=== PATIENT | male | born 1970 | race Caucasian/White ===

== ENCOUNTER 2017-03-19 10:21 | Emergency (ER) | payer BC ==
--- NOTE | 2017-03-19 10:32 | EDM.PDOC ---
ED HPI GENERAL MEDICAL PROBLEM - General Chief Complaint: Respiratory Problem Stated Complaint: COLD, COUGH,AND FEVER Time Seen by Provider: 03/19/17 10:31 Source of Information: Reports: Patient - History of Present Illness INITIAL COMMENTS - FREE TEXT/NARRATIVE: HISTORY AND PHYSICAL: History of present illness: [Patient presents with cough increasing in severity to the no fever nausea vomiting chills sweats no chest pain shortness breath headache dizziness palpitation no bowel or urine symptoms ] Review of systems: As per history of present illness and below otherwise all systems reviewed and negative. Past medical history: As per history of present illness and as reviewed below otherwise noncontributory. Surgical history: As per history of present illness and as reviewed below otherwise noncontributory. Social history: No reported history of drug or alcohol abuse. Family history: As per history of present illness and as reviewed below otherwise noncontributory. Physical exam: HEENT: Atraumatic, normocephalic, pupils reactive, negative for conjunctival pallor or scleral icterus, mucous membranes moist, throat clear, neck supple, nontender, trachea midline. Lungs: Fine Bibasilar crackles with slight end expiratory wheeze breath sounds equal bilaterally, chest nontender. Heart: S1S2, regular, negative for clicks, rubs, or JVD. Abdomen: Soft, nondistended, nontender. Negative for masses or hepatosplenomegaly. Negative for costovertebral tenderness. Pelvis: Stable nontender. Genitourinary: Deferred. Rectal: Deferred. Extremities: Atraumatic, negative for cords or calf pain. Neurovascular unremarkable. Neuro: Awake, alert, oriented. Cranial nerves II through XII unremarkable. Cerebellum unremarkable. Motor and sensory unremarkable throughout. Exam nonfocal. Diagnostics: [Influenza Chest 2 views CBC ] Therapeutics: [Prednisone taper Tessalon Perles ] Impression: [Cough/wheeze with] Definitive disposition and diagnosis as appropriate pending reevaluation and review of above. joints Pain Score (Numeric/FACES): 2 - Related Data Allergies Allergy/AdvReac Type Severity Reaction Status Date / Time No Known Allergies Allergy Verified 03/19/17 10:42 Home Meds: Home Meds . [No Known Home Meds] 03/19/17 [History] ED ROS GENERAL - Review of Systems Review Of Systems: ROS reveals no pertinent complaints other than HPI. ED EXAM, GENERAL - Physical Exam Exam: See Below Course - Vital Signs Last Recorded V/S: Last Vital Signs Temp 97.7 F 03/19/17 10:40 Pulse 75 03/19/17 10:40 Resp 18 03/19/17 10:40 BP 128/84 03/19/17 10:40 Pulse Ox 95 03/19/17 10:40 - Orders/Labs/Meds Orders: Active Orders 24 hr Category Date Time Status Chest 2V [CR] Stat Exams 03/19/17 10:31 Taken Labs: Laboratory Tests 03/19/17 Range/Units 10:54 WBC 6.40 (4.0-11.0) K/uL RBC 4.49 L (4.50-5.90) M/uL Hgb 14.4 (13.0-17.0) g/dL Hct 40.7 (38.0-50.0) % MCV 90.6 (80.0-98.0) fL MCH 32.1 H (27.0-32.0) pg MCHC 35.4 (31.0-37.0) g/dL RDW Std Deviation 42.5 (28.0-62.0) fl RDW Coeff of Nikos 13 (11.0-15.0) % Plt Count 256 (150-400) K/uL MPV 9.10 (7.40-12.00) fL Neut % (Auto) 51.7 (48.0-80.0) % Lymph % (Auto) 35.6 (16.0-40.0) % Cochran % (Auto) 9.4 (0.0-15.0) % Eos % (Auto) 2.7 (0.0-7.0) % Baso % (Auto) 0.6 (0.0-1.5) % Neut # (Auto) 3.3 (1.4-5.7) K/uL Lymph # (Auto) 2.3 (0.6-2.4) K/uL Cochran # (Auto) 0.6 (0.0-0.8) K/uL Eos # (Auto) 0.2 (0.0-0.7) K/uL Baso # (Auto) 0.0 (0.0-0.1) K/uL Nucleated RBC % 0.0 /100WBC Nucleated RBCs # 0 K/uL Departure - Departure Time of Disposition: 11:40 Disposition: Home, Self-Care 01 Condition: Good Clinical Impression: Cough - Discharge Information Referrals: PCP,None [Primary Care Provider] - Forms: ED Department Discharge Additional Instructions: The following information is given to patients seen in the emergency department who are being discharged to home. This information is to outline your options for follow-up care. We provide all patients seen in our emergency department with a follow-up referral. The need for follow-up, as well as the timing and circumstances, are variable depending upon the specifics of your emergency department visit. If you don't have a primary care physician on staff, we will provide you with a referral. We always advise you to contact your personal physician following an emergency department visit to inform them of the circumstance of the visit and for follow-up with them and/or the need for any referrals to a consulting specialist. The emergency department will also refer you to a specialist when appropriate. This referral assures that you have the opportunity for follow-up care with a specialist. All of these measure are taken in an effort to provide you with optimal care, which includes your follow-up. Under all circumstances we always encourage you to contact your private physician who remains a resource for coordinating your care. When calling for follow-up care, please make the office aware that this follow-up is from your recent emergency room visit. If for any reason you are refused follow-up, please contact the [facility] emergency department at and asked to speak to the emergency department charge nurse. - My Orders Last 24 Hours: My Active Orders 03/19/17 10:31 Chest 2V [CR] Stat - Assessment/Plan Last 24 Hours: My Active Orders 03/19/17 10:31 Chest 2V [CR] Stat
--- NOTE | 2017-03-21 17:34 | CR ---
EXAM DATE: 03/19/17 PATIENT'S AGE: 46 Patient: XAVIER HUSAIN Facility: [place], [place] Site . Site : [id number] Study: XRay Chest [id number]/20/2018 11:16:04 AM Ordering Physician: Doctor Mireles Final Report: CHEST 2 VIEWS INDICATION: Cough and fever. IMPRESSION: Normal heart size and vascular pattern. Lungs are clear. No pneumothorax or pleural abnormality. Dictated by Austin Salvador MD @ Mar 19 2017 11:20AM (Electronic Signature) Report Signed by Proxy. MARGARITA
== END 2017-03-19 11:55 | disposition home or self-care (01) ==
LOC: MW.ED 10:21
DX: R05 Cough (principal)
CPT/HCPCS: 36415; 71046; 71046-26; 85025; 87804; 99283